=== PATIENT | male | born 1985 | race African-American/Black ===

== ENCOUNTER 2019-08-25 08:27 | Emergency (ER) | payer MEDICAID ==
[~2019-08-25] VITALS: Ht 172.7 cm; Wt 79.4 kg
[2019-08-25 08:44] VITALS: BP 154/93
[2019-08-25] MEDS ORDERED: FLUORESCEIN SOD 1 MG TEST STRIP ONE (09:25)
[2019-08-25] MEDS ORDERED: TETRACAINE HCL 0.5% OPTH(EYE) SOLN 4ML ONE (09:25)
[2019-08-25] MEDS ORDERED: SODIUM CHLORIDE 0.9% 1,000 ML IV ONE (09:30)
[2019-08-25] MEDS ORDERED: FLUORESCEIN SOD 1 MG TEST STRIP LEFTEYE ONE (09:30)
[2019-08-25] MEDS ORDERED: TETRACAINE HCL 0.5% OPTH(EYE) SOLN 4ML LEFTEYE ONE (09:30)
== END 2019-08-25 10:45 | disposition home or self-care (01) ==
LOC: ER 08:30
DX: T65.891A Toxic effect of other specified substances, accidental (unintentional), initial encounter (principal); T26.62XA Corrosion of cornea and conjunctival sac, left eye, initial encounter; Y93.89 Activity, other specified; Y92.89 Other specified places as the place of occurrence of the external cause; Y99.8 Other external cause status
CPT/HCPCS: 99283; J7030

== ENCOUNTER 2024-05-17 19:31 | Emergency (ER) | payer MEDICAID, OTHER ==
[~2024-05-17] VITALS: Ht 172.7 cm; Wt 81.4 kg
[2024-05-17 20:49] VITALS: BP 126/93; PULSE 79; RESP 18; TEMP 98; O2SAT 100
[2024-05-17] MEDS ORDERED: CYCL-839 PO (21:53)
[2024-05-17] MEDS ORDERED: IBUP-1455 PO (21:53)
[2024-05-17] MEDS ORDERED: LIDO5DIS21 TOP (21:53)
[2024-05-17] MEDS: KETOROLAC TROMETH 30 MG/ML 1ML VIAL IM ONE (22:06)
== END 2024-05-17 22:12 | disposition home or self-care (01) ==
LOC: ER 19:31
DX: M54.2 Cervicalgia (principal); M54.9 Dorsalgia, unspecified; V43.53XA Car driver injured in collision with pick-up truck in traffic accident, initial encounter; Y93.I9 Activity, other involving external motion; Y92.89 Other specified places as the place of occurrence of the external cause; Y99.0 Civilian activity done for income or pay
CPT/HCPCS: 96372; 99283; J1885